=== PATIENT | male | born 1975 | race Caucasian/White ===

== ENCOUNTER → 2016-12-22 | Outpatient (CLI) | payer BC | LOC: RAD 09:23 | DX: S50.12XA Contusion of left forearm, initial encounter (principal); X58.XXXA Exposure to other specified factors, initial encounter ==

== ENCOUNTER → 2017-05-25 | Outpatient (CLI) | payer BC | LOC: RAD 10:21 | DX: M50.322 Other cervical disc degeneration at C5-C6 level (principal) ==